=== PATIENT | female | born 1980 | race Caucasian/White ===

== ENCOUNTER 2020-10-22 16:58 | Observation (INO) | payer OTHER ==
[~2020-10-22] VITALS: Ht 160 cm; Wt 58.1 kg
--- NOTE | ~2020-10-22 | HC ---
[facility] [place] [address] CONSULTATION Name: RINA ZHENG Room #: 449-I [facility] M.R.#: [id number] Admission: 10/22/20 Attend Phys: Fareed Meza Discharge: Date of : 76 Report #: [id number] THIS REPORT FOR: cc: Tabatha Wei Linda J. DO Khosla, Parveen K. MD ~ DOC #: [id number] Stanton Car MD DATE OF SERVICE: 10/23/2020 HISTORY OF PRESENT ILLNESS: This 40-year-old female patient was evaluated by me for numbness in all 4 extremities. Record indicates she was admitted with the neck pain with paraesthesia in all 4 extremities, about 2 weeks' duration. To me, she mainly complained of paraesthesia in all 4 extremities. She also says she has some weakness there. She had one episode of bladder involvement. She has not been evaluated by physical therapy. REVIEW OF SYSTEMS: She does have bladder symptoms now. She had an MRI of the C-spine, which was unremarkable. She does say that she is under stress. She is not on any medication for anxiety, but she takes Wellbutrin. She has taken multiple other medications as per records like Adderall. That was a relevant 14-point review of system. PAST MEDICAL HISTORY: Positive for a diagnosis of ADHD and IBS. FAMILY HISTORY: Unremarkable. SOCIAL HISTORY: She has a history of smoking. PHYSICAL EXAMINATION: The patient's examination indicate that she is alert, responsive, able to follow simple commands. Cranial nerve examination appeared unremarkable. Neurological examination is difficult to tell. She does have some weakness, whether it is a giveaway weakness or real weakness, not certain. She did pretty well with the position sense and reflexes are present and I believe plantars are downgoing. Cardiorespiratory examination is unremarkable. Her blood pressure has been low at 96/59 and it has been low even before that. IMPRESSION AND PLAN: The etiology of the patient's symptoms is not clear. She did sometimes says the pinprick did not feel as well on the left side as on the right side, both including the face. I think it will be desirable to exclude the possibility of a mass with her multiple symptoms especially veering towards the right. She needs some blood workup. She needs an EMG which cannot be done as an inpatient and if we need to completely work her up, then she will also need a spinal tap. I discussed with her. She will think about that and we will see how she does with physical therapy [place] [address] CONSULTATION Name: RINA ZHENG Room #: 449-I [facility] Ariel Hwang#: [id number] Admission: 10/22/20 Attend Phys: Fareed Meza Discharge: Date of : 76 Report #: [id number] Thank you very much for this referral. MD KATARINA Funes/BRIONNA By: 02 0028 Stanton Car MD /nt
[~2020-10-22 16:58] MED LIST: ADDERALL 20 MG20 MG PO; ADDERALL XR 3030 MG PO; DESVENLAFAXINE50 M2 PO; KEFLEX500 M1 PO
[2020-10-22 17:03] VITALS: BP 110/73
[2020-10-22] MEDS ORDERED: ADDERALL 20 MG20 MG PO (17:40)
[2020-10-22] MEDS ORDERED: CHANTIX1 MG PO (17:40)
[2020-10-22] MEDS ORDERED: WELLBUTRIN SR100 MG PO (17:40)
[2020-10-22] MEDS ORDERED: LUNESTA3 MG PO (17:41)
[2020-10-22] MEDS ORDERED: ADDERALL 10 MG10 MG PO (17:41)
[2020-10-22 21:48] LABS: ABSOLUTE NEUTROPHILS 5.3 thou/uL (1.4-8.2); BASOPHILS 0.2 % (0.0-2.0); EOSINOPHILS 0.9 % (0.0-3.0); HEMATOCRIT 27.8 % (37.0-47.0); HEMOGLOBIN 8.9 gm/dL (12.0-15.0); LYMPHOCYTES 41.1 % (24.0-44.0); MCH 24.9 pg (26.0-34.0); MCHC 31.9 g/dL (28.0-37.0); MCV 78.1 fL (80.0-100.0); MONOCYTES 6.6 % (1.0-8.0); PLATELET COUNT 314 thou/uL (150-400); POLYS 51.2 % (36.0-66.0); RBC 3.56 mil/uL (4.20-5.00); RDW 18.8 % (10.5-14.5); WBC 10.3 thou/uL (4.0-11.0)
[2020-10-22 21:49] LABS: CALCIUM 8.1 mg/dL (8.5-10.1); CREATININE 0.7 mg/dL (0.6-1.0); POTASSIUM 4.3 mmol/L (3.5-5.1)
[2020-10-22 21:56] LABS: ALBUMIN 3.2 g/dL (3.4-5.0); TOTAL BILIRUBIN 0.1 mg/dL (0.2-1.0)
[2020-10-22 22:18] VITALS: BP 110/78
[2020-10-22 22:33] VITALS: BP 113/68
[2020-10-22 23:27] VITALS: BP 114/79
[2020-10-23 05:36] LABS: HEMATOCRIT 25.8 % (37.0-47.0); HEMOGLOBIN 8.6 gm/dL (12.0-15.0); MCH 25.9 pg (26.0-34.0); MCHC 33.5 g/dL (28.0-37.0); MCV 77.3 fL (80.0-100.0); RBC 3.34 mil/uL (4.20-5.00); RDW 18.7 % (10.5-14.5); WBC 8.9 thou/uL (4.0-11.0)
[2020-10-23 05:57] LABS: CREATININE 0.6 mg/dL (0.6-1.0); POTASSIUM 4.1 mmol/L (3.5-5.1)
[2020-10-23 05:58] LABS: % SATURATION 5 % (20-39); IRON 15 ug/dL (50-170); TIBC 294 ug/dL (250-450)
--- NOTE | 2020-10-23 06:18 | NUR ---
This RN admitted patient to room 449 at 2301. Assessment and history received. Per Jennyfer, SET AND EXHIBIT DESIGNER gave norco for pain in neck, spine, and hips. Pain relieved and patient slept most of the night. Plan for MRI today and for Dr. Lima to see patient.
[2020-10-23 06:27] LABS: FOLIC ACID 4.7 ng/mL (8.6-58.9)
[2020-10-23 07:49] VITALS: BP 110/75
--- NOTE | 2020-10-23 11:27 | NUR ---
PT ADMITTED RELATED TO NECK PAIN AND ATAXIA. CM REVIEWED CHART AND SPOKE WITH CARE TEAM. CM MET WITH PT AT BEDSIDE THIS DAY. PT APPEARED TO BE A&O X4. CM ROLE INTRODUCED. PT INDICATED SHE LIVES IN A HOUSE WITH HER SPOUSE AND KIDS. PT INDICATED THERE AT 12-13 STEPS SHE USES REGULARLY AT HOME. 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 PT INDICATED SHE HAD HH IN THE PAST FOR IV ABX TREATMENT. PT INDICATED SHE PLANS TO RETURN HOME ONCE MEDICALLY STABLE. CM FOLLOWING REGARDING DC PLANNING. PT TO HAVE MRI NEURO SURGERY CONSULTED.
[2020-10-23 15:25] VITALS: BP 96/59
[2020-10-23 19:54] VITALS: BP 106/5
--- NOTE | 2020-10-23 19:55 | NUR ---
ASSUMED CARE OF PATIENT AT SHIFT CHANGE. ASSESSMENT CHARTED. MEDS GIVEN PER EMAR. VSS. PATIENT IS A&OX4 AND MAKES NEEDS KNOWN. PATIENT IS A SBA AND WILL CALL IF FEELING WEAK. PATIENT VOICING RADIATING PAIN STARTING AT THE NECK. PAIN MANAGED BY PRN PO ANALGESIC. TOLERATING PO INTAKE WELL. GI CONSULTED; WILL HAVE COLONOSCOPY 10/24/20 OR 10/25/20. PATIENT EDUCATED AND AWARE OF PROCEDURE. PATIENT DENIES FURTHER NEEDS. ENDORSED TO ONCOMING NURSE
--- NOTE | 2020-10-24 06:10 | NUR ---
Assumed pt care at 1900. A/OX4,VSS. C/o headache/neck pain, denies ataxia or dizziness on assessment. medicated for pain with some relief reported. Up ad louis in room encouraged to call as needed for help and doing so. Pt to start on a clear diet from breakfast. Resting quietly w/o any distress noted. Will continue to monitor pt.
[2020-10-24 07:23] VITALS: BP 94/59
[2020-10-24 10:12] LABS: IgA 150 mg/dL (87-352); IgG 596 mg/dL (586-1602); IgM 85 mg/dL (26-217)
[2020-10-24 11:05] LABS: HEMATOCRIT 29.2 % (37.0-47.0); HEMOGLOBIN 9.1 gm/dL (12.0-15.0); MCH 24.4 pg (26.0-34.0); MCHC 31.2 g/dL (28.0-37.0); MCV 78.2 fL (80.0-100.0); RBC 3.74 mil/uL (4.20-5.00); RDW 18.1 % (10.5-14.5); WBC 8.6 thou/uL (4.0-11.0)
[2020-10-24] MEDS ORDERED: BACLOFEN 10MG T10 MG PO (12:06)
[2020-10-24] MEDS ORDERED: IRON325 M1 PO (14:55)
[2020-10-24] MEDS ORDERED: FOLIC ACID0.4 MG PO (14:55)
[2020-10-24 16:00] VITALS: BP 102/64
[2020-10-24 16:45] VITALS: BP 102/64
--- NOTE | 2020-10-24 17:24 | NUR ---
Assumed pt care at 10 am., VS stable. Pt is observation, etienne down for an MRI of the head. Diet and medicatiosn are tolerated well. No nausea or vomiting noted. POC followed with no signs or verbalizations of distress. Pt requested to speak to the MD prior to DC, in formed MD. Dr. Flowers called and spoke to the pt in the room. IV removed, pt is now dc.
[2020-10-25 10:08] LABS: ANA INTERPRETATION Negative (Negative)
== END 2020-10-24 17:29 | disposition home or self-care (01) ==
LOC: ER 16:58 → 4W 21:57 → EROBS 21:57 → 4W 21:57
PROVIDERS: Emergency Medicine; Nurse Practitioner; Nurse Practitioner Family; Psychiatry & Neurology Neuromuscular Medicine; ADMIT Internal Medicine; ATTEND Internal Medicine
DX: M54.2 Cervicalgia (principal); M54.9 Dorsalgia, unspecified; R27.0 Ataxia, unspecified; D64.9 Anemia, unspecified; K58.9 Irritable bowel syndrome, unspecified; Z79.82 Long term (current) use of aspirin; Z79.899 Other long term (current) drug therapy
CPT/HCPCS: 10047

== ENCOUNTER 2020-10-27 13:20 | Emergency (ER) | payer OTHER ==
[~2020-10-27] VITALS: Ht 160 cm; Wt 57.1 kg
[~2020-10-27 13:20] MED LIST changes: +ADDERALL 10 MG10 MG PO; +BACLOFEN 10MG T10 MG PO; +CHANTIX1 MG PO; +FOLIC ACID0.4 MG PO; +IRON325 M1 PO; +LUNESTA3 MG PO; +WELLBUTRIN SR100 MG PO
[2020-10-27 13:26] VITALS: BP 121/76
[2020-10-27] MEDS ORDERED: ZOFRAN ODT4 MG PO (14:51)
[2020-10-27] MEDS ORDERED: NAPROSYN500 M1 PO (14:51)
[2020-10-27] MEDS ORDERED: CEPHALEXIN500 MG PO (14:51)
== END 2020-10-27 14:52 | disposition home or self-care (01) ==
LOC: ER 13:20
DX: I80.8 Phlebitis and thrombophlebitis of other sites (principal); M19.90 Unspecified osteoarthritis, unspecified site; F17.200 Nicotine dependence, unspecified, uncomplicated; Z79.899 Other long term (current) drug therapy; Z72.89 Other problems related to lifestyle; Z88.0 Allergy status to penicillin

== ENCOUNTER → 2020-12-11 | Outpatient (CLI) | payer OTHER ==
[~2020-12-11] MED LIST changes: +CEPHALEXIN500 MG PO; +NAPROSYN500 M1 PO; +ZOFRAN ODT4 MG PO
== END ==
LOC: LAB 14:02
PROVIDERS: ATTEND Psychiatry & Neurology Neuromuscular Medicine
DX: M62.81 Muscle weakness (generalized) (principal); M54.2 Cervicalgia

== ENCOUNTER → 2020-12-17 | Outpatient (CLI) | payer OTHER | LOC: MRI 11:18 | PROVIDERS: ATTEND Psychiatry & Neurology Neuromuscular Medicine | DX: M47.816 Spondylosis without myelopathy or radiculopathy, lumbar region (principal); G35 Multiple sclerosis; R32 Unspecified urinary incontinence ==